=== PATIENT | female | born 2000 | race Hispanic/Latino ===

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

== ENCOUNTER 2019-01-02 09:09 | Outpatient (CLI) | payer OTHER ==
--- NOTE | 2019-01-02 12:47 | ULT ---
ULTRASOUND OBSTETRICAL COMPLETE: 01/02/2019 HISTORY: A 18-year-old female in second trimester of . Evaluate anatomy. ICD-10: Z34.02, encoun ter for supervision of normal first in second trimester. Anatomy, sizes, dates and cervical length. FINDINGS: number: Rider. lie: Cephalic. Maternal cervix: 3 cm in length and closed. Placenta: Anterior. No placenta previa. Amniotic fluid volume: Subjectively normal. DEVIN not measured. heart rate: 153 bpm. The following anatomy is visualized, with no evidence of anomalies: Head, lateral ventricles, cerebellum, spine, upper limbs, lower limbs, four chamber heart, umbilical cord, cord insertion, stomach, kidneys, and bladder. biometry: Head circumference (HC): 18.0 cm 20w 4d Biparietal diameter (BPD): 4.7 cm 20w 2d Abdominal circumference (AC): 13.6 cm 19w 1d Femur length (FL): 3.1 cm 19w 4d Average ultrasound age (AUA): 20w 0d Estimated date of delivery (BABAK): 05/22/2019 Last menstrual period (LMP): 08/19/2018 Gestational age by LMP: 19w 3d Estimated weight (EFW): 290 g, +/- 42 g (0 lb 10 oz, +/- 1 oz) IMPRESSION: 1. Live second trimester intrauterine gestation. 2. Estimated gestational age of 20 weeks, 0 days. 3. Cephalic lie. 4. No anatomical abnormalities. 5. Cervix 3 cm. jose ramon [] POS: [facility]
== END 2019-01-02 09:10 | disposition home or self-care (01) ==
LOC: BICULT 09:09
PROVIDERS: ATTEND Family Medicine
DX: Z34.02 Encounter for supervision of normal first pregnancy, second trimester (principal); Z3A.20 20 weeks gestation of pregnancy
CPT/HCPCS: 76805

== ENCOUNTER 2019-04-11 14:01 | Day surgery (SDC) | payer OTHER ==
[2019-04-11 14:49] VITALS: BP 123/73; TEMP 99.3; BMI 31.8
[2019-04-11] MEDS ORDERED: hydrALAZINE 20 MG/ML VIAL SLOW IVP PRN (15:34)
[2019-04-11 16:05] LABS: Bilirubin Negative (Negative); Blood, Urine Trace (Negative); Clarity Clear (Clear); Glucose, Urine (Dipstick) Normal (Negative); Leukocyte 500 Leu/uL (Negative); Nitrite Negative (Negative); Protein, Urine (Dipstick) 20 mg/dL (Neg-Trace); Urobilinogen Normal mg/dL (Less than 2)
[2019-04-11 16:07] LABS: Bacteria/HPF 1+ HPF (None Seen)
[2019-04-11 16:09] LABS: #Lymphocytes 1.5 thou/uL (1.20-3.40); #Neutrophils 8.8 thou/uL (1.40-6.50); %Basophils 0.3 % (0.0-1.0); %Eosinophils 0.4 % (0.0-10.0); %Lymphocytes 12.9 % (28.0-48.0); %Monocytes 8.8 % (0.0-4.0); %Neutrophils 77.6 % (31.0-61.0); Mean Corpuscular HGB CONC 32.5 g/dL (32.0-36.0); Mean Corpuscular Hemoglobin 27.6 pg (25.0-35.0); Mean Corpuscular Volume 84.9 fL (78.0-98.0); Mean Platelet Volume 8.6 fL (7.4-10.4); Platelet Count 224 thou/uL (130-400); RBC Distribution Width 11.7 % (11.5-14.5); Red Blood Cell (RBC) Count 3.98 mill/uL (4.00-5.20); White Blood Cell (WBC) Count 11.3 thou/uL (4.8-10.8)
[2019-04-11 16:31] LABS: ALT (SGPT) 12 U/L (8-55); AST (SGOT) 13 U/L (5-34); Albumin 3.2 g/dL (3.5-5.0); Alkaline Phosphatase 163 U/L (40-100); Anion Gap 12 mmol/L (10-20); BUN (Urea Nitrogen) 5 mg/dL (7.0-18.7); Bilirubin, Total 0.3 mg/dL (0.2-1.2); Calc. Creatinine Clearance 225 mL/min (70-130); Calcium 8.7 mg/dL (7.8-10.44); Carbon Dioxide 21 mmol/L (22-29); Chloride 106 mmol/L (98-107); Estimated GFR-MDRD Greater than 90; Globulin 3.4 g/dL (2.4-3.5); Glucose 86 mg/dL (70-105); Potassium 3.8 mmol/L (3.5-5.1); Protein, Total 6.6 g/dL (6.0-8.3); Sodium 135 mmol/L (136-145)
--- NOTE | 2019-04-12 01:25 | SS ---
DATE OF ADMISSION: 04/11/2019 DATE OF DISCHARGE: 04/11/2019 REGULAR PHYSICIAN: Cristofer Solares MD EVALUATING PHYSICIAN: Austin Jones MD CHIEF COMPLAINT: Nausea, vomiting, diarrhea at home. HISTORY OF PRESENT ILLNESS: Ms. Ballard is a 19-year-old G1, P0, with an estimated date of confinement of 05/25/2019, who presents complaining of nausea, vomiting, and diarrhea over the last 24 to 48 hours. She states that she has some cramping last night that is now resolved. She denies ruptured membranes, vaginal bleeding or decreased movement. Her care has been with Dr. Solares without complications. PAST MEDICAL HISTORY: None. PAST SURGICAL HISTORY: Knee surgery. CURRENT MEDICATIONS: vitamins and iron. ALLERGIES: VIBRAMYCIN, WHICH SHE STATES GIVES HER HIVES. SOCIAL HISTORY: Denies tobacco, alcohol, or drug use. FAMILY HISTORY: Unremarkable. REVIEW OF SYSTEMS: Denies fever, chills, ruptured membranes, vaginal bleeding or decreased movement. PHYSICAL EXAMINATION: VITAL SIGNS: Vital signs in triage are stable. She is afebrile. GENERAL: She is pleasant and in no acute distress. ABDOMEN: Soft, nontender, and gravid. There is no guarding or rebound. PELVIC: Deferred. heart rate tracing is reassuring without decelerations. No uterine activity seen. LABORATORY DATA: White count 11.3, hemoglobin and hematocrit are 11.0 and 33.8, platelet count 224,000. Chemistries; sodium 135, potassium 3.8, BUN 5, creatinine 0.58, glucose 86, total bilirubin 0.3, AST and ALT are 13 and 12. Urinalysis shows a specific gravity of 1.020 with trace protein, negative glucose, trace ketones, trace blood. It is positive for leukocyte esterase. Microscopic shows 4-6 rbc's, 4-6 wbc's, 1+ bacteria with 4-6 squamous cells. ASSESSMENT: 1. Thirty-three week intrauterine . 2. Viral syndrome. No evidence of labor. 3. Suspected urinary tract infection. PLAN: At this time, the patient will be dismissed home. She has been able to tolerate Gatorade and water liberally while she is here. She was given prescriptions for Phenergan 25 mg #25 one p.o. q.6 hours p.r.n. nausea, vomiting, as well as a prescription for Keflex 500 mg one p.o. t.i.d. for a week. She voiced understanding of her discharge instructions and was told to return should her symptoms return or increase, and labor precautions were reviewed with her in detail. She states she has an appointment in Dr. Solares's office next week. She may also use [id number] antidiarrheals if she has return of her diarrhea. Job ID: [id number]
== END 2019-04-11 18:00 | disposition home health service (06) ==
LOC: L&D/OP 14:01
PROVIDERS: ATTEND Family Medicine
DX: O98.513 Other viral diseases complicating pregnancy, third trimester (principal); B34.9 Viral infection, unspecified; Z3A.33 33 weeks gestation of pregnancy; Z79.899 Other long term (current) drug therapy; Z88.1 Allergy status to other antibiotic agents
CPT/HCPCS: 36415; 80053; 81003; 81015; 85025; 99283

== ENCOUNTER 2019-05-15 11:48 | Inpatient (IN) | payer OTHER ==
[2019-05-15] MEDS ORDERED: Butorphanol Tartrate 1 MG/ML VIAL SLOW IVP PRN (12:14)
[2019-05-15] MEDS ORDERED: NS / Oxytocin 40 units/1000ml 1,000 ML IV PRN (12:14)
[2019-05-15] MEDS ORDERED: hydrALAZINE 20 MG/ML VIAL SLOW IVP PRN (12:14)
[2019-05-15] MEDS ORDERED: Promethazine HCl 25 MG/ML VIAL IM PRN (12:14)
[2019-05-15] MEDS ORDERED: Ibuprofen 800 MG TAB PO PRN (12:14)
[2019-05-15] MEDS ORDERED: Lidocaine 1% (PF) 30 ML VIAL SC PRN (12:14)
[2019-05-15] MEDS ORDERED: Methylergonovine 0.2 MG/ML VIAL IM PRN (12:14)
[2019-05-15] MEDS ORDERED: Diphenoxylate HCl/Atropine Tablet PO PRN (12:14)
[2019-05-15] MEDS ORDERED: Carboprost 250 MCG/ML AMP IM PRN (12:14)
[2019-05-15] MEDS ORDERED: Ondansetron PF 4 MG/2 ML Vial IVP PRN (12:14)
[2019-05-15] MEDS ORDERED: Misoprostol 200 MCG TAB PR PRN (12:14)
[2019-05-15] MEDS ORDERED: HYDROcodone/Acetaminophen 5/325 mg Tablet PO PRN (12:14)
[2019-05-15] MEDS ORDERED: NS w/ Oxytocin 10 units 500 ML IV SCH ×2 (12:15)
[2019-05-15 12:47] LABS: Hemoglobin 11.1 g/dL (12.0-16.0); Mean Corpuscular HGB CONC 33.6 g/dL (32.0-36.0); Mean Corpuscular Hemoglobin 26.9 pg (25.0-35.0); Mean Corpuscular Volume 80.2 fL (78.0-98.0); Mean Platelet Volume 9.5 fL (7.4-10.4); Platelet Count 244 thou/uL (130-400); RBC Distribution Width 12.7 % (11.5-14.5); Red Blood Cell (RBC) Count 4.12 mill/uL (4.00-5.20); White Blood Cell (WBC) Count 9.9 thou/uL (4.8-10.8)
[2019-05-15 13:11] VITALS: BMI 35.6
[2019-05-15] MEDS: Lactated Ringer's 1,000 ML IV SCH ×2 (13:17→20:00)
[2019-05-15 13:32] LABS: HBSAg Index 0.25 S/CO (0-0.99); Hep B Surf Ag Non-Reactive S/CO (NonReactive)
[2019-05-15 13:33] LABS: Syphilis Antibody Nonreactive (Nonreactive); Syphilis Antibody Index 0.04 S/CO (<1.00 Non-Reactive)
[2019-05-15] MEDS ORDERED: Fentanyl 4 mcg/Bup 0.1% Cadd 100 ML ONE (19:46)
[2019-05-16] MEDS ORDERED: Bisacodyl 10 MG SUPP PR PRN (00:27)
[2019-05-16] MEDS ORDERED: Milk Of Magnesia 30 ML UDCUP PO PRN (00:27)
[2019-05-16] MEDS ORDERED: Lanolin Ointment 7 GM TUBE TOP PRN (00:27)
[2019-05-16] MEDS ORDERED: Ondansetron PF 4 MG/2 ML Vial IVP PRN (00:27)
[2019-05-16] MEDS ORDERED: diphenhydrAMINE 25 MG CAP PO PRN (00:27)
[2019-05-16] MEDS ORDERED: Promethazine HCl 25 MG/ML VIAL IM PRN (00:27)
[2019-05-16] MEDS ORDERED: NS / Oxytocin 40 units/1000ml 1,000 ML IV SCH (00:27)
[2019-05-16] MEDS ORDERED: HYDROcodone/Acetaminophen 5/325 mg Tablet PO PRN (00:27)
[2019-05-16] MEDS ORDERED: Benzocaine-Menthol 82.5 ML CAN TOP PRN (00:27)
[2019-05-16] MEDS ORDERED: hydrALAZINE 20 MG/ML VIAL SLOW IVP PRN (00:27)
[2019-05-16] MEDS ORDERED: Preparation H Ointment 28 GM TUBE PR PRN (00:27)
[2019-05-16] MEDS: Ibuprofen 800 MG TAB PO SCH ×3 (00:51→22:31)
[2019-05-16] MEDS: HYDROcodone/Acetaminophen 5/325 mg Tablet PO PRN ×2 (02:02→23:13)
[2019-05-16 06:03] LABS: Hemoglobin 9.5 g/dL (12.0-16.0); Mean Corpuscular HGB CONC 32.7 g/dL (32.0-36.0); Mean Corpuscular Hemoglobin 26.5 pg (25.0-35.0); Mean Corpuscular Volume 81.3 fL (78.0-98.0); Mean Platelet Volume 9.5 fL (7.4-10.4); Platelet Count 211 thou/uL (130-400); RBC Distribution Width 12.7 % (11.5-14.5); Red Blood Cell (RBC) Count 3.59 mill/uL (4.00-5.20); White Blood Cell (WBC) Count 18.2 thou/uL (4.8-10.8)
[2019-05-16] MEDS: Docusate Calcium (SURFAK) 240 MG CAP PO SCH ×2 (08:02→22:31)
[2019-05-16] MEDS: Ferrous Sulfate 325 MG TAB PO SCH ×2 (08:02→17:18)
[2019-05-16] MEDS: Prenatal Vitamin 1 TAB PO SCH (08:02)
[2019-05-16] MEDS ORDERED: Adacel (T-DAP) 0.5 ML SYRINGE IM ONE (09:00)
[2019-05-17] MEDS: Ibuprofen 800 MG TAB PO SCH ×2 (05:38→13:54)
[2019-05-17] MEDS: Prenatal Vitamin 1 TAB PO SCH (09:25)
[2019-05-17] MEDS: HYDROcodone/Acetaminophen 5/325 mg Tablet PO PRN (09:25)
[2019-05-17] MEDS: Docusate Calcium (SURFAK) 240 MG CAP PO SCH (09:25)
[2019-05-17] MEDS: Ferrous Sulfate 325 MG TAB PO SCH (09:26)
[2019-05-17 11:51] VITALS: BP 128/77; TEMP 99.2
== END 2019-05-17 16:20 | disposition home or self-care (01) | DRG 807 ==
LOC: L&D 11:48 → 3SW 05-16 00:25
PROVIDERS: ADMIT Family Medicine; ATTEND Family Medicine
PROC: 10E0XZZ Delivery of Products of Conception, External Approach (ICD-10-PCS; principal; 2019-05-15)
PROC: 0KQM0ZZ Repair Perineum Muscle, Open Approach (ICD-10-PCS; 2019-05-15)
DX: O42.02 Full-term premature rupture of membranes, onset of labor within 24 hours of rupture (principal); Z37.0 Single live birth; Z3A.38 38 weeks gestation of pregnancy; O70.1 Second degree perineal laceration during delivery; O71.82 Other specified trauma to perineum and vulva
CPT/HCPCS: 36415; 85027; 86780; 86850; 86900; 86901; 87340; J0595; J2001; J2405; J2590

== ENCOUNTER 2022-06-15 13:39 | Outpatient (CLI) | payer OTHER | END 2022-06-15 13:40 | disposition home or self-care (01) | LOC: ULT 13:39 | PROVIDERS: ATTEND Advanced Practice Midwife | DX: E05.90 Thyrotoxicosis, unspecified without thyrotoxic crisis or storm (principal); E04.1 Nontoxic single thyroid nodule | CPT/HCPCS: 76536 ==

== ENCOUNTER 2024-01-28 11:51 | Outpatient (CLI) | payer OTHER | END 2024-01-28 11:52 | disposition home or self-care (01) | LOC: BICULT 11:51 | PROVIDERS: ATTEND Family Medicine | DX: O09.892 Supervision of other high risk pregnancies, second trimester (principal); Z3A.21 21 weeks gestation of pregnancy | CPT/HCPCS: 76805 ==